=== PATIENT | male | born 1980 | race Caucasian/White ===

== ENCOUNTER → 2017-12-26 | Outpatient (CLI) | payer BC ==
[~2017-12-26] MED LIST: ALLEGRA60 MG PO; DECONGESTANT PO; LEVOTHROID0.15 MG PO
== END ==
LOC: COL.RAD 12:03
DX: R10.30 Lower abdominal pain, unspecified (principal)
CPT/HCPCS: Q9967

== ENCOUNTER → 2019-08-28 | Outpatient (CLI) | payer BC ==
[~2019-08-28] MED LIST changes: +FIORICET 325 MG1 TA1 PO; +PHENERGAN 25 TA25 MG PO
== END ==
LOC: ZLAB.ENT 14:10
DX: J32.0 Chronic maxillary sinusitis (principal)

== ENCOUNTER → 2021-12-21 | Outpatient (CLI) | payer BC | LOC: ZCOL.LAB 15:55 | DX: J32.0 Chronic maxillary sinusitis (principal) ==